=== PATIENT | female | born 1950 | race Caucasian/White ===

== ENCOUNTER 2017-09-07 15:41 | Emergency (ER) | payer BC ==
[2017-09-07 16:02] VITALS: BP 151/64
== END 2017-09-07 16:04 | disposition left against medical advice (07) ==
LOC: UCCORT 15:41
DX: M25.531 Pain in right wrist (principal); Z53.21 Procedure and treatment not carried out due to patient leaving prior to being seen by health care provider

== ENCOUNTER 2017-09-08 15:38 | Emergency (ER) | payer BC ==
[2017-09-08 17:58] VITALS: BP 151/54
--- NOTE | 2017-09-08 18:30 | RAD ---
INDICATION: Atraumatic right wrist pain COMPARISON: None. TECHNIQUE: 3 views right wrist. REPORT: The visualized bones are properly aligned and well corticated. Degenerative changes of the right wrist include sclerotic change of the right thumb metacarpal trapezium joint and sclerotic change of the distal radius.There is no fracture, dislocation or other focal osseous abnormality. IMPRESSION: Mild degenerative changes of the right wrist. If the patient's symptoms persist, follow-up imaging is recommended.
--- NOTE | 2017-09-08 18:33 | ED ---
Upper Extremity Pain - HPI Summary HPI Summary: 66 yr old female with the complaint of right wrist pain. Onset of pain was over the past week, without any specific history of trauma or injury. 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 Complains of pain, 5/10, localized mainly to the dorsum of the right wrist. Not associated with numbness or weakness. No redness, fever, chills, swelling. Moving the wrist in flexion makes the pain worse. - History of Current Complaint Chief Complaint: UCUpperExtremity Stated Complaint: RIGHT WRIST COMPLAINT Time Seen by Provider: 09/08/17 17:45 - Allergies/Home Medications Allergies/Adverse Reactions: Allergies Allergy/AdvReac Type Severity Reaction Status Date / Time No Known Allergies Allergy Verified 09/08/17 17:58 PMH/Surg Hx/FS Hx/Imm Hx Endocrine/Hematology History: Reports: Hx Thyroid Disease Cardiovascular History: Reports: Hx Hypertension - Surgical History Surgery Procedure, Year, and Place: RIGHT KNEE REPLACEMENT 04/2105. cardiac stents Infectious Disease History: No Infectious Disease History: Denies: Traveled Outside the [place] in Last 30 Days - Family History Known Family History: Positive: Unknown, Hypertension, Other - DJD - Social History Alcohol Use: None Substance Use Type: Reports: None Smoking Status (MU): Former Smoker Length of Time of Smoking/Using Tobacco: 1 PPD 37 Years Review of Systems Constitutional: Negative Positive: Other - wrist pain All Other Systems Reviewed And Are Negative: Yes Physical Exam Triage Information Reviewed: Yes Vital Signs On Initial Exam: Initial Vitals Temp Pulse Resp BP Pulse Ox 97.8 F 54 17 151/54 99 09/08/17 17:53 09/08/17 17:53 09/08/17 17:53 09/08/17 17:53 09/08/17 17:53 Vital Signs Reviewed: Yes Appearance: Positive: Well-Appearing, No Pain Distress Skin: Positive: Warm, Skin Color Reflects Adequate Perfusion Head/Face: Positive: Normal Head/Face Inspection Eyes: Positive: EOMI Respiratory/Lung Sounds: Positive: Other - normal effort Cardiovascular: Positive: Pulses are Symmetrical in both Upper and Lower Extremities Musculoskeletal: Positive: Strength/ROM Intact, Other - she has negative tinnel and phalen tests right wrist. No deformity of wrist, no swelling, no redness no increased warmth. She has good radial pulses, good capillary refill. Normal neuro vascular exam right hand. Neurological: Positive: Sensory/Motor Intact, Alert, Oriented to Person Place, Time, CN Intact II-III Psychiatric: Positive: Normal - [place] Coma Scale Best Eye Response: 4 - Spontaneous Best Motor Response: 6 - Obeys Commands Best Verbal Response: 5 - Oriented Diagnostics - Vital Signs Vital Signs Temp Pulse Resp BP Pulse Ox 09/08/17 17:53 97.8 F 54 17 151/54 99 - Laboratory Lab Statement: Any lab studies that have been ordered have been reviewed, and results considered in the medical decision making process. - Radiology wrist right Xray Interpretation: Positive (See Comments) Radiology Interpretation Completed By: Radiologist Course/Dx - Course Course Of Treatment: 66 yr old female with DJD wrist. Splint and motrin. 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
== END 2017-09-08 18:59 | disposition home or self-care (01) ==
LOC: UCCORT 15:38
DX: M19.031 Primary osteoarthritis, right wrist (principal); I10 Essential (primary) hypertension; E07.9 Disorder of thyroid, unspecified; Z96.651 Presence of right artificial knee joint; Z95.5 Presence of coronary angioplasty implant and graft; Z87.891 Personal history of nicotine dependence
CPT/HCPCS: 99212; G0463

== ENCOUNTER 2017-12-09 11:02 | Emergency (ER) | payer BC ==
--- OUTSIDE RECORDS SUMMARY | 2017-12-09 12:00 | XMS REPORT ---
:1950 External Reference #:[id number] Author Organization [facility] Address [address], [address] [place] [address] Phone [phone] Care Team Providers Name Role Phone Deb Marr NP Care Team Information Call Or Contact Centre Manager Unavailable Deb Marr NP Primary Care Physician Unavailable Payers Type Date Identification Numbers Payment Provider Subscriber Commercial Effective: Policy Number: Emily Sterling Owen 2013 [id number] Group Name: Emily Gregory [address] [address] PayID: [id number] [place] [address] Problems Date Description Provider Status Onset: 07/31/2011 Benign essential hypertension Karol Cordoba M.D. Active Onset: 07/31/2011 Hypothyroidism Karol Cordoba M.D. Active Onset: 07/31/2011 Hyperlipidemia Karol Cordoba M.D. Active Onset: 07/31/2011 Disorder of cardiovascular system Karol Cordoba M.D. Active Onset: 11/11/2015 Mixed hyperlipidemia Karol Cordoba M.D. 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 None Allergies, Adverse Reactions, Alerts Date Description Reaction Status Severity Comments 12/24/2014 NKDA active Medications Medication Date Status Form Strength Qnty SIG Indications Ordering Provider Hydrochlorothiaz 09/13 Active Tablets 25mg 30tab 1 by I10 Deb reggie s mouth ARTEM Marr every day in addition to metoprolo l Levothyroxine 09/13 Active Tablets 137mcg 30tab 1 by Jenmila s mouth ARTEM Marr every day *in place of 125 mcg* Crestor 08/10 Active Tablets 20mg 90tab Take One Magdaleneferleierika s Tablet By ARTEM Marr Mouth Every Day Metoprolol 07/07 Active Tablets 50mg 180ta Take One chandnibaljit Tartrate bs Tablet By ARTEM Marr Mouth Twice A Day Aspirin Active Tablets 325mg 1 PO qd Noemi MD Karol Nitrostat Active Tablets 0.4mg 10tab one Sub s sublingua ARTEM Marr l at onset of chest pain/ angina, may repeat in 5 minutes x 2, total of 3 tabs Metformin HCL 09/13 Hx Tablets 500mg 60tab take one chandnibaljit s tablet by ARTEM Marr - mouth 11/22 twice a day Levothyroxine 02/16 Hx Tablets 125mcg 90tab Take One baljit s Tablet By ARTEM Marr - Mouth 09/13 Lorazepam 11/29 Hx Tablets 0.5mg 2tabs 1 tab by Barbara mouth 1 MD Dayana - hour 11/10 prior to appointme nt . may repeat x1. Ref # [id number] Ondansetron HCL 08/14 Hx Tablets 4mg 10tab 1 tab Noemi, s every 6hr MD Karol - as needed 11/10 for nausea Famciclovir 07/11 Hx Tablets 500mg 3tabs take 3 Barbara tablets MD Dayana - po all at 02/11 Naproxen 12/14 Hx Tablets 375mg 60tab 1 by Rc Ponce s mouth - twice a 11/10 day after meals Levothyroxine 07/31 Hx Tablets 112mcg 90tab take one Magdalenefergeorgegh Sodium s tablet by ARTEM Marr - mouth 02/16 every Immunizations CPT Code Status Date Vaccine Lot # [id number] Given 06/12/2017 Zoster Vaccine Live Injection 60693 Given 06/12/2017 Influenza Virus Vaccine, Quadrivalent, Slit Virus, Im Use 82806 Given 02/11/2017 Pneumococcal Conjugate Vaccine 13 Valent For [id number] Intramuscular Use 18522 Given 06/07/2013 flu vaccination 78179 Given 05/11/2012 flu vaccination 73591 Given 07/31/2011 Pneumovax Injection 21882 Given 07/31/2011 flu vaccination Vital Signs Date Vital Result Comment 11/22/2017 BP Systolic Sitting Left Arm 128 mmHg BP Diastolic Sitting Left Arm 80 mmHg Heart Rate 78 /min Respiratory Rate 18 /min Height 66 inches 5'6" Weight 265.00 lb BMI (Body Mass Index) 42.8 kg/m2 BSA (Body Surface Area) 2.25 m2 [place] body weight in kilograms 59 09/13/2017 BP Systolic Sitting Left Arm 136 mmHg BP Diastolic Sitting Left Arm 84 mmHg Heart Rate 88 /min Respiratory Rate 18 /min Height 66 inches 5'6" Weight 263.50 lb BMI (Body Mass Index) 42.5 kg/m2 BSA (Body Surface Area) 2.25 m2 [place] body weight in kilograms 59 02/11/2017 BP Systolic Sitting Left Arm 134 mmHg BP Diastolic Sitting Left Arm 76 mmHg Heart Rate 78 /min Respiratory Rate 18 /min Height 66 inches 5'6" Weight 287.00 lb BMI (Body Mass Index) 46.3 kg/m2 BSA (Body Surface Area) 2.33 m2 [place] body weight in kilograms 59 11/11/2015 BP Systolic Sitting Right Arm 130 mmHg BP Diastolic Sitting Right Arm 60 mmHg Heart Rate 74 /min Respiratory Rate 19 /min Weight 268.00 lb 08/14/2014 BP Systolic 118 mmHg BP Diastolic 66 mmHg Body Temperature 98.4 F Height 66 inches 5'6" Weight 253.00 lb 12/14/2013 BP Systolic 124 mmHg LG Cuff BP Diastolic 68 mmHg LG Cuff Body Temperature 98.8 F Height 66 inches 5'6" Weight 273.00 lb 06/07/2013 BP Systolic 126 mmHg BP Diastolic 78 mmHg Body Temperature 98.2 F Height 66 inches 5'6" Weight 280.00 lb 01/11/2013 BP Systolic 114 mmHg BP Diastolic 76 mmHg Heart Rate 72 /min Height 65 inches 5'5" Weight 278.00 lb 12/15/2011 Height 63.5 inches 5'3.50" Weight 265.00 lb Results Test Date Test Result H/L Range Note Laboratory test 11/18/2017 Thyroid Stim Hormone 1.21 uIU/mL 0.30-4.20 1 finding Laboratory test 09/13/2017 Thyroid Stim Hormone 7.99 uIU/mL High 0.30- 4.20 2 finding Thyroid Antibodies 02/11/2017 Thyroglobulin Antibody 2.4 IU/mL High 0.0- 0.9 3, 4 Thyroid Peroxidase Antibodies 440 IU/mL High 0-34 3, 5 CBS W/Automated Diff 02/11/2017 White Blood Count 6.6 K/uL 3.1-10.7 3 Red Blood Count 4.26 M/uL 3.90-5.40 3 Hemoglobin 13.5 gm/dL 11.6-15.8 3 Hematocrit 41.6 % 36.0-46.1 3 Mean Cell Volume 97.7 fl 80.9-99.0 3 Mean Corpuscular HGB 31.7 pg 25.9-32.7 3 Mean Corpuscular HGB Conc 32.5 g/dL 30.8-34.3 3 Platelet Count 242 K/uL 150-400 3 Red Cell Distri Width SD 47.5 fl High 3-47 3 Red Cell Distri Width %CV 13.5 % 11.7-14.4 3 Mean Platelet Volume 11.2 fL 8.9-12.4 3 Neut% 50.5 % 40.4-72.8 3 Lymph % 32.6 % 20.0-42.0 3 [place] % 13.1 % 4.3-13.2 3 Eo% 3.3 % 0.0-6.6 3 Bas% 0.5 % 0.0-1.1 3 Neut# 3.32 K/uL 1.8-7.0 3 Lymph # 2.14 K/uL 1.0-4.0 3 [place] # 0.86 K/uL 0.3-0.9 3 Eos # 0.22 K/uL 0.0-0.5 3 Baso # 0.03 K/uL 0.0-0.1 3 Comprehensive Metabolic Panel 02/11/2017 Glucose 76 mg/dL 74-106 3 BUN 11 mg/dL 7-18 3 Creatinine 0.8 mg/dL 0.6-1.3 3 Glom Filtration Rate, Estimate >60 mL/min >60 3 If >60 mL/min >60 3, 6 BUN/Creat 13.7 ratio 3 Sodium 141 mmol/L 136-145 3 Potassium 4.1 mmol/L 3.5-5.1 3 Chloride 106 mmol/L 98-107 3 Carbon Dioxide 28 mmol/L 21-32 3 Anion Gap 7 mEq/L Low 8-16 3 Calcium 9.4 mg/dL 8.5-10.1 3 Total Protein 7.6 g/dL 6.4-8.2 3 Albumin 3.8 g/dL 3.4-5.0 3 Globulin 3.8 g/dL 1.9-4.3 3 Alb/Glob 1.0 ratio 3 Bilirubin,Total 0.3 mg/dL 0.2-1.0 3 Sgot/Ast 22 U/L 15-37 3 SGPT/Alt 38 U/L 12-78 3 Alkaline Phosphatase 68 U/L 45-117 3 Laboratory test 02/11/2017 Thyroid Stim Hormone 11.80 uIU/mL High 0.30- 4.20 3 finding LDL Cholesterol 02/11/2017 Cholesterol 163 mg/dL <200 3, 7 Profile Triglycerides 242 mg/dL High <150 3, 8 HDL Cholesterol 41 mg/dL >40 3, 9 LDL-Cholesterol 74 mg/dL < 100 3, 10 Basic Metabolic Panel 11/11/2015 Glucose 76 mg/dL 74-106 BUN 16 mg/dL 7-18 Creatinine 0.8 mg/dL 0.6-1.3 Glom Filtration Rate, Estimate >60 mL/min >60 If >60 mL/min >60 11 BUN/Creat 20.0 ratio Sodium 141 mmol/L 136-145 Potassium 3.8 mmol/L 3.5-5.1 Chloride 106 mmol/L 98-107 Carbon Dioxide 30 mmol/L 21-32 Anion Gap 5 mEq/L Low 8-16 Calcium 8.6 mg/dL 8.5-10.1 LDL Cholesterol Profile 11/11/2015 Cholesterol 155 mg/dL 150-200 12 Triglycerides 246 mg/dL High 50-150 13 HDL Cholesterol 43 mg/dL Low 60-150 14 LDL-Cholesterol 63 mg/dL Low 75-100 15 Liver Function Tests 11/11/2015 Total Protein 7.7 g/dL 6.4-8.2 Albumin 3.8 g/dL 3.4-5.0 Globulin 3.9 g/dL 1.9-4.3 Alb/Glob 1.0 ratio Bilirubin,Total 0.3 mg/dL 0.2-1.0 Bilirubin,Direct < 0.1 mg/dL 0.0-0.2 Bilirubin,Indirect 0.2 mg/dL 0.0-0.9 Sgot/Ast 15 U/L 15-37 SGPT/Alt 28 U/L 12-78 Alkaline Phosphatase 69 U/L 45-117 Laboratory test finding 11/11/2015 Thyroid Stim Hormone 2.12 uIU/mL 0.36- 3.74 Liver Function Panel 06/07/2013 Albumin 4.1 g/dL 3.2-5.2 Albumin/Globulin Ratio 1.5 1-3 Alkaline Phosphatase 64 U/L 30-110 Alt 24 U/L 14-54 Ast 22 U/L 12-42 Direct Bilirubin 0.1 mg/dL 0.1-0.5 Globulin 2.8 g/dL 2-4 Indirect Bilirubin 0.5 mg/dL 0.3-1.0 Total Bilirubin 0.6 mg/dL 0.4-1.5 Total Protein 6.9 g/dL 6.2-8.1 Laboratory test 06/07/2013 TSH (Thyroid 3.76 miu/mL 0.34-5.60 finding Stimulating Horm) Lipid Profile 06/07/2013 Cholesterol 161 mg/dL Less than 200 (Trig/Chol/HDL) Cholesterol/HDL Ratio 4.1 Average 1-4.44 HDL Cholesterol 39 mg/dL Low 40-60 16 LDL Cholesterol 72.6 Less Than 100 17 Triglycerides 247 mg/dL High 40-200 Lipid Profile (Trig/Chol/HDL) 01/11/2013 Cholesterol 169 mg/dL Less than 200 Cholesterol/HDL Ratio 4.0 Average 1-4.44 HDL Cholesterol 42 mg/dL 40-60 18 LDL Cholesterol 82.6 mg/dL Less Than 100 19 Triglycerides 222 mg/dL High 40-200 Liver Function Panel 01/11/2013 Albumin 4.3 g/dL 3.2-5.2 Albumin/Globulin Ratio 2.0 1-3 Alkaline Phosphatase 60 U/L 30-110 Alt 26 U/L 14-54 Ast 22 U/L 12-42 Direct Bilirubin 0.1 mg/dL 0.1-0.5 Globulin 2.1 g/dL 2-4 Indirect Bilirubin 0.6 mg/dL 0.3-1.0 Total Bilirubin 0.7 mg/dL 0.4-1.5 Total Protein 6.4 g/dL 6.2-8.1 Urine Culture And 01/11/2013 Urine Culture (See Note) 20 Sensitivities Laboratory test finding 08/05/2012 Throat Beta Strep (See Note) 21 Culture Liver Function Panel 05/11/2012 Albumin 4.3 GM/DL 3.2-5.2 Albumin/Globulin Ratio 1.5 1-3 Alkaline Phosphatase 68 U/L 30-110 Alt (SGPT) 31 U/L 14-54 Ast (Sgot) 25 U/L 12-42 Bilirubin Direct 0.1 mg/dL 0.1-0.5 Bilirubin Total 0.7 mg/dL 0.4-1.5 22 Globulin 2.9 GM/DL 2-4 Indirect Bilirubin 0.6 mg/dL 0.3-1.0 23 Total Protein 7.2 GM/DL 6.2-8.1 Lipid Profile (Trig/Chol/HDL) 05/11/2012 Cholesterol 274 mg/dL High Less Than 200 24 Cholesterol/HDL Ratio 7.41 AVERAGE High 1-4.44 High Density Lipoprotein 37 mg/dL Low 40-60 25 Low Density Lipoprotein (See Note) mg/dL Less Than 100 26 Triglyceride 459 mg/dL High 40-200 Basic Metabolic Panel 05/11/2012 Anion Gap 7.0 mmol/L 2-11 27 BUN 10 mg/dL 6-24 BUN/Creatinine Ratio 12.5 8-20 Calcium 9.6 mg/dL 8.1-9.9 Chloride 100 mmol/L Low 101-111 Co2 (Carbon Dioxide) 28.0 mmol/L 22-32 Creatinine 0.8 mg/dL 0.50-1.40 Glucose 85 mg/dL 70-100 One Over Creatinine 1.25 Potassium 4.0 mmol/L 3.5-5.0 Sodium 135 mmol/L 135-145 eGFR 94.1 > 60 28 eGFR Non- 73.2 > 60 Laboratory test finding 05/11/2012 Thyroxine Free 0.66 ng/dL 0.61-1.24 TSH 3.12 MIU/ML 0.34-5.60 Laboratory test finding 05/11/2012 Cytology Pap See Note 29 Affirm 05/11/2012 Rosalia Negative 30 Gardnerella Negative Trichomonas Negative 1 I10 E03.9 has appt 11/22 to discuss results. 2 E03.9 3 I10 E03.9 4 Thyroglobulin Antibody measured by [facility] [place] [facility] 5 Performed at: - [facility] [id number] Assistant Scientist: Mary Jimenez MD, Phone: [phone] Note: Persistent reduction for 3 months or more in an eGFR <60 mL/min/1.73 m2 defines CKD. Patients with eGFR values >/=60 mL/min/1.73 m2 may also have CKD if evidence of persistent proteinuria is present. The original MDRD equation for estimated GFR is not valid for patients less than 18 years of age. Additional information may be found at www.kdoqi.org. 7 Reference Guidelines*: Desirable: ........... < 200 mg/dL Borderline High: ..... 200-239 mg/dL High: ................ >=240 mg/dL * The National Cholesterol Education Program (NCEP) 8 Reference Guidelines*: Normal: ............. < 150 mg/dL Borderline High: .... 150-199 mg/dL High: ............... 200-499 mg/dL Very High: .......... > 500 mg/dL * Source: National Cholesterol Education Program (NCEP) 9 Reference Guidelines*: Low HDL: ..... < 40 mg/dL Normal: ..... 40-60 mg/dL Desirable: ... > 60 mg/dL *The National Cholesterol Education Program(NCEP) 10 Reference Guidelines*: Optimal:........... <100 mg/dL Near Optimal....... 100-129 mg/dL Borderline High.... 130-159 mg/dL High............... 160-189 mg/dL Very High.......... >=190 mg/dL * Source: National Cholesterol Education Program (NCEP) 11 Note: Persistent reduction for 3 months or more in an eGFR <60 mL/min/1.73 m2 defines CKD. Patients with eGFR values >/=60 mL/min/1.73 m2 may also have CKD if evidence of persistent proteinuria is present. The original MDRD equation for estimated GFR is not valid for patients less than 18 years of age. Additional information may be found at www.kdoqi.org. 12 Reference Guidelines*: Desirable: ........... < 200 mg/dL Borderline High: ..... 200-239 mg/dL High: ................ >=240 mg/dL * The National Cholesterol Education Program (NCEP) 13 Reference Guidelines*: Normal: ............. < 150 mg/dL Borderline High: .... 150-199 mg/dL High: ............... 200-499 mg/dL Very High: .......... > 500 mg/dL * Source: National Cholesterol Education Program (NCEP) 14 Reference Guidelines*: Low HDL: ..... < 40 mg/dL Normal: ..... 40-60 mg/dL Desirable: ... > 60 mg/dL *The National Cholesterol Education Program(NCEP) 15 Reference Guidelines*: Optimal:........... <100 mg/dL Near Optimal....... 100-129 mg/dL Borderline High.... 130-159 mg/dL High............... 160-189 mg/dL Very High.......... >=190 mg/dL * Source: National Cholesterol Education Program (NCEP) 16 HDL Interpretation: Undesirable: High Risk: Less than 40 mg/dL Desirable: Low Risk: Greater than 60 mg/dL 17 LDL Interpretation: Low Risk Optimal Level: LDL Less than 100 mg/dL Near or Above Optimal: LDL 100-129 mg/dL Borderline High Risk: LDL 130-159 mg/dL High Risk : LDL 160-189 mg/dL Very High Risk: LDL Greater than 189 mg/dL 18 HDL Interpretation: Undesirable: High Risk: Less than 40 mg/dL Desirable: Low Risk: Greater than 60 mg/dL 19 LDL Interpretation: Low Risk Optimal Level: LDL Less than 100 mg/dL Near or Above Optimal: LDL 100-129 mg/dL Borderline High Risk: LDL 130-159 mg/dL High Risk : LDL 160-189 mg/dL Very High Risk: LDL Greater than 189 mg/dL 20 RUN DATE: 01/14/13 [facility] LAB LIVE PAGE 1 RUN TIME: [address] [place] [id number] Specimen Inquiry ----- Name: RENATE CONCEPCION : [address]: Karol Cordoba MD Acct: [id number] Unit: [id number] AGE: 62 Location: [facility] Re01/11/13 SEX: F Status: REG REF ----- SPEC: [id number] NIKI: 01/11/[address]: Karol Cordoba MD REQ: [id number] RECD: 01/11/13 STATUS: COMP _ SOURCE: URINE SPDESC: ORDERED: Urine Culture QUERIES: Medent Number [id number] Urine Source: Random ----- Procedure Result Verified Site ----- Urine Culture Final 01/14/13-927 ML Organism 1 STREP GROUP B [place] Count 10-25,000 (Moderate) CFU/ML Organism 2 NORMAL JAYLA [place] Count 1-10, 000 (Few) CFU/ML Susceptibility testing of penicillins and other B-lactams approved by FDA for treatment of Streptococcus pyogenes (Group A Strep) and Streptococcus agalactiae (Group B Strep) is not necessary for clinical purposes and need not be done routinely, since as with vancomycin, resistant strains have not been recognized. (CLSI Y560-N29;p.66) Positive isolates will be saved for one week. Please call the Microbiology Laboratory if further susceptibility testing is needed. ----- END OF REPORT * ML=Testing performed at Main Lab DEPARTMENT OF PATHOLOGY, [address] [place] [address] [place] June M.D. Director [facility] Permit # [id number] RUN DATE: 08/07/12 [facility] LAB LIVE PAGE 1 RUN TIME: [address] [place] [address] Specimen Inquiry ----- Name: RENATE CONCEPCION : [address]: Karol Cordoba MD Acct: [id number] Unit: [id number] AGE: 61 Location: [facility] Re08/05/12 SEX: F Status: REG REF ----- SPEC: [id number] NIKI: 08/05/[address]: Karol Cordoba MD REQ: [id number] RECD: 08/05/12 STATUS: COMP _ SOURCE: THROAT SPDESC: ORDERED: Throat Beta Str QUERIES: Medent Number [id number] ----- Procedure Result Verified Site ----- Throat Beta Strep Culture Final 08/07/12-0811 ML Negative For Group A Beta Streptococcus ----- END OF REPORT * ML=Testing performed at Main Lab DEPARTMENT OF PATHOLOGY, [address] [place] [address] Raleigh June M.D. Director [facility] Permit # [id number] 22 A metabolite of Naproxen, O-desmethylnaproxen, has been shown to interfere with the [place] method for measuring total bilirubin. Samples from patients who have taken Naproxen have shown spurious elevation in total bilirubin levels. 23 Please note updated reference range, effective 03/13/10 24 CHOLESTEROL INTERPRETATION: Desirable: Less than 200 MG/DL Borderline-High Risk: 200-239 MG/DL High-Risk: 240 MG/DL and over 25 HDL INTERPRETATION: Undesirable: High Risk: Less than 40 MG/DL Desirable: Low Risk: Greater than 60 MG/DL 26 UNABLE TO CALCULATE LDL TRIGLYCERIDE IS > 400 27 Anion gap measurement may be of limited value in the presence of any alkalosis, especially in a combined acid base disorder. . 28 Because ethnic data is not always readily available, this report includes an eGFR for both -Americans and non- Americans. The National Kidney Disease Education Program (NKDEP) does not endorse the use of the MDRD equation for patients that are not between the ages of 18 and 70, are , have extremes of body size, muscle mass, or nutritional status, or are non- or non-. According to the National Kidney Foundation, irrespective of diagnosis, the stage of the disease is based on the level of kidney function: Stage Description GFR(mL/min/1.73 m(2)) 1 Kidney damage with normal or decreased GFR 90 2 Kidney damage with mild decrease in GFR 60- 89 3 Moderate decrease in GFR 30-59 4 Severe decrease in GFR 15-29 5 Kidney failure <15 (or dialysis) 29 Cytology Laboratory [address], [address] [place] [address] CYTOLOGY REPORT Name: Renate Concepcion : 1950 (Age: 61) Sex: F Location: [facility] Med. Rec. # Date Collected: 05/11/2012 Billing #: [id number] Date Received: 2011 Physician(s): KAROL CORDOBA MD Source of Specimen: A: ENDOCERVICAL/ECTOCERVICAL THIN PREP MASS/POLYP B: ENDOCERVICAL/ECTOCERVICAL THIN PREP OS Clinical Information: Date of Last Menstrual Period: None Provided Menstrual History: Post menopausal: Unknown 1. ENDOCERVICAL/ECTOCERVICAL THIN PREP MASS/POLYP: Specimen Adequacy: SATISFACTORY FOR EVALUATION. ADEQUATE ENDOCERVICAL/TRANSFORMATION ZONE. General Categorization: NEGATIVE FOR INTRAEPITHELIAL LESION OR MALIGNANCY. 2. ENDOCERVICAL/ECTOCERVICAL THIN PREP OS: Specimen Adequacy: SATISFACTORY FOR EVALUATION. ADEQUATE ENDOCERVICAL/TRANSFORMATION ZONE. General Categorization: NEGATIVE FOR INTRAEPITHELIAL LESION OR MALIGNANCY. jib Electronic Signature Juancho Kyle MD Reported: 05/13/2012 Also seen by: ZOË Saldaña (ASCP) Cytology Outreach [facility] ICD-9 Code(s) V72.31 30 Special Testing Laboratory [address], [address] [place] [address] AFFIRM VAGINOSIS / VAGINITIS REPORT Name: Renate Concepcion : 1950 (Age: 61) Sex: F Location: [facility] Med. Rec. # Date Collected: 05/11/2012 Billing #: [id number] Date Received: 05/12/2012 Physician(s): KAROL CORDOBA MD Source of Specimen: Vaginal Results: Rosalia species DNA Probe NEGATIVE Gardnerella vaginalis DNA Probe NEGATIVE Trichomonas vaginalis DNA Probe NEGATIVE Reported: 05/13/2012 Electronic Signature rachel OLIVEIRA ([facility]) [facility] Technical Laboratory [facility] ICD-9 Codes: A: 616.10 Procedures Date CPT Code Description Status Comment 02/25/2017 46126 Removal Skin Tags/Multi To Completed 15 12/01/2016 Mammogram Completed Document: 11/23/15 - Digital Mammo Screen Bilat Document: 12/01/16 - Screening Mammogram Bilateral 12/15/2011 23229 Asp./Injection major joint Completed 06/24/[address] Knight - 5 years - was scheduled but cancelled appt Triage: 12/22/16 - colonoscopy Encounters Type Date Location Provider CPT E/M Dx Office Visit 11/22/2017 11:45a [facility] ARTEM Jacques 26794 I10 E03.9 Z12.31 Office Visit 09/13/2017 11:15a [facility] ARTEM Jacques 04011 I10 E03.9 E66.01 Office Visit 02/11/2017 1:30p [facility] ARTEM Jacques 75579 J02.9 J30.9 F43.21 E66.01 I10 E03.9 Z23 Office Visit 11/11/2015 4:30p [facility] Karol Cordoba M.D. 87037 I10 I10 E78.2 E78.2 E03.9 E03.9 Plan of Care Future Appointment(s):05/24/2018 3:00 pm - ARTEM Jacques at [facility]11/22/2017 - YUNG Jacques10 Essential (primary) hypertensionComments:Nicely improved on HCTZ - continue, meds refilled. Discussed getting back to walking most days of the week for your heart healthFollow up:6 month f/u htn, etcE03.9 Hypothyroidism, unspecifiedComments: Discussed labs above. No changes needed. Continue on TlzqvgguruijfT63.31 Encntr screen mammogram for malignant neoplasm of breastNew Xrays:Mammography, Screening Bilateral Mammogram
[2017-12-09 12:11] VITALS: BP 138/76
--- NOTE | 2017-12-09 12:54 | UC ---
Throat Pain/Nasal [place] HPI - HPI Summary HPI Summary: nasal congestion / cough x 2 days sinus pressure, pnd, no fever, + chills - History of Current Complaint Chief Complaint: UCRespiratory Stated Complaint: Sinuses Time Seen by Provider: 12/09/17 12:37 Hx Obtained From: Patient Onset/Duration: Gradual Onset, Lasting Days - 2, Still Present Severity: Moderate Pain Intensity: 8 Cough: Nonproductive Associated Signs & Symptoms: Positive: Sinus Discomfort, Nasal Discharge. Negative: Wheezing, Hoarseness, Fever, Vomiting, Rash - Allergies/Home Medications Allergies/Adverse Reactions: Allergies Allergy/AdvReac Type Severity Reaction Status Date / Time No Known Allergies Allergy Verified 12/09/17 12:12 Home Medications: Home Medications Aspirin TAB* [Aspirin 325 MG TAB*] 325 mg PO DAILY 12/09/17 [History Confirmed 12/09/17] Chlorphenir/Phenyleph/Aspirin [[place] Plus Cold 2-7.8-325 mg] 2 tab PO Q4HR PRN 12/09/17 [History Confirmed 12/09/17] Metoprolol Tartrate TAB* [Lopressor TAB*] 50 mg PO BID 12/09/17 [History Confirmed 12/09/17] Nitroglycerin [Nitrostat] 0.3 mg SL SEE INSTRUCTIONS 12/09/17 [History Confirmed 12/09/17] Rosuvastatin Calcium [Crestor] 20 mg PO DAILY 12/09/17 [History Confirmed ] PMH/Surg Hx/FS Hx/Imm Hx Cardiovascular History: Cardiac Disease, Hypertension - Surgical History Surgical History: Yes Surgery Procedure, Year, and Place: RIGHT KNEE REPLACEMENT 04/2105. cardiac stent - Family History Known Family History: Positive: Unknown, Hypertension, Other - DJD - Social History Alcohol Use: None Substance Use Type: None Smoking Status (MU): Former Smoker Length of Time of Smoking/Using Tobacco: 1 PPD 37 Years When Did the Patient Quit Smoking/Using Tobacco: 2005 - Immunization History Most Recent Influenza Vaccination: 9313-0176 Review of Systems Constitutional: Chills, Fatigue Skin: Negative Eyes: Negative ENT: Sore Throat, Nasal Discharge, Sinus Congestion, Sinus Pain/Tenderness Respiratory: Cough Cardiovascular: Negative Is Patient Immunocompromised?: No All Other Systems Reviewed And Are Negative: Yes Physical Exam Triage Information Reviewed: Yes Appearance: Well-Appearing, No Pain Distress, Well-Nourished Vital Signs: Initial Vital Signs Temp 98.9 F 12/09/17 12:03 Pulse 72 12/09/17 12:03 Resp 18 12/09/17 12:03 BP 138/76 12/09/17 12:03 Pulse Ox 97 12/09/17 12:03 Vital Signs Reviewed: Yes Eyes: Positive: Conjunctiva Clear ENT: Positive: Normal ENT inspection, Hearing grossly normal, Pharynx normal, Nasal congestion, TMs normal Neck: Positive: Supple, Nontender, No Lymphadenopathy Respiratory: Positive: Chest non-tender, Lungs clear, Normal breath sounds, No respiratory distress Cardiovascular: Positive: RRR, No Murmur, Pulses Normal Skin Exam: Normal Throat Pain/Nasal Course/Dx - Differential Dx/Diagnosis Provider Diagnoses: uri Discharge - Sign-Out/Discharge Documenting (check all that apply): Discharge - Discharge Plan Condition: Stable Disposition: HOME Patient Education Materials: Upper Respiratory Infection (ED) Forms: *Work Release Referrals: Marissa Marr NP [Primary Care Provider] - If Needed - Billing Disposition and Condition Condition: STABLE Disposition: HOME
== END 2017-12-09 13:01 | disposition home or self-care (01) ==
LOC: UCCORT 11:02
DX: J06.9 Acute upper respiratory infection, unspecified (principal); I51.9 Heart disease, unspecified; I10 Essential (primary) hypertension; Z87.891 Personal history of nicotine dependence
CPT/HCPCS: 99211; G0463

== ENCOUNTER 2019-07-10 07:46 | Emergency (ER) | payer BC ==
--- OUTSIDE RECORDS SUMMARY | 2019-07-10 07:51 | XMS REPORT | Continuity of Care Document ---
:1950 External Reference #:[id number] Author Name Deb Marr DOCTOR OF OSTEOPATHY Address [address] [place] [address] Care Team Providers Name Role Phone Deb Marr, [employer]ILDING [employer] - Nurse Care Team Information Superintendent [employer] [phone] Practitioner Lele Radford MD - Obstetrics & Care Team Information Superintendent [employer] Gynecology Problems Active Problems Provider Date Benign essential hypertension Karol Franklin M.D. Onset: 07/31/2011 Hypothyroidism Karol Franklin M.D. Onset: 07/31/2011 Hyperlipidemia Karol Franklin M.D. Onset: 07/31/2011 Disorder of cardiovascular system Karol Franklin M.D. Onset: 07/31/2011 Mixed hyperlipidemia Karol Franklin M.D. Onset: 11/11/2015 Social History Type Date Description Comments Sex Unknown ETOH Use Denies alcohol use Tobacco Use Start: Unknown End: Unknown Patient is a former smoker Smoking Status Reviewed: 04/26/19 Patient is a former smoker Allergies, Adverse Reactions, Alerts Description No Known Drug Allergies Medications Active Medications SIG Qnty Indications Ordering Date Provider Rosuvastatin Calcium Take One Tablet 90tabs Clune, 08/17/2018 20mg By Mouth Every Jenniferleigh, Tablets Day DOCTOR OF OSTEOPATHY Hydrochlorothiazide Take One Tablet 30tabs I10 Clune, 09/13/2017 25mg By Mouth Every Jenniferleigh, Tablets Day In Addition DOCTOR OF OSTEOPATHY To Metoprolol Levothyroxine Sodium Take One Tablet 30tabs Clune, 09/13/2017 137mcg By Mouth Every Jenniferleigh, Tablets Day DOCTOR OF OSTEOPATHY Metoprolol Tartrate Take One Tablet 180tabs Clune, 07/07/2011 50mg By Mouth Twice A Jenniferleigh, Tablets Day DOCTOR OF OSTEOPATHY Aspirin 1 PO qd Franklin, 325mg Tablets MD Karol Nitrostat one sublingual 10tabs Clune, 0.4mg Tablets Sub at onset of Jenniferleigh, chest pain/ DOCTOR OF OSTEOPATHY angina, may repeat in 5 minutes x 2, total of 3 tabs Immunizations CPT Code Status Date Vaccine Lot # [id number] Given 06/07/2018 Pneumovax Injection [id number] Given 06/07/2018 Influenza High Dose [id number] 30693 Given 06/12/2017 Zoster Vaccine Live Injection 78948 Given 06/12/2017 Influenza Virus Vaccine, Quadrivalent, Slit Virus, Im Use 06283 Given 02/11/2017 Pneumococcal Conjugate Vaccine 13 Valent For [id number] Intramuscular Use 97828 Given 06/07/2013 flu vaccination 31821 Given 05/11/2012 flu vaccination 28722 Given 07/31/2011 Pneumovax Injection 93967 Given 07/31/2011 flu vaccination Vital Signs Date Vital Result Comment 04/26/2019 1:34pm BP Systolic 137 mmHg BP Diastolic 73 mmHg Body Temperature 97.8 F Heart Rate 67 /min Respiratory Rate 16 /min Height 64 inches 5'4" Weight 278.00 lb BMI (Body Mass Index) 47.7 kg/m2 BSA (Body Surface Area) 2.25 m2 Peel body weight in kilograms 54 kg O2 % BldC Oximetry 91 % 04/13/2019 1:18pm BP Systolic Sitting Resting Right Arm 153 mmHg BP Diastolic Sitting Resting Right Arm 67 mmHg Heart Rate 69 /min Respiratory Rate 16 /min Height 64 inches 5'4" Weight 278.00 lb BMI (Body Mass Index) 47.7 kg/m2 BSA (Body Surface Area) 2.25 m2 Peel body weight in kilograms 54 kg Results Description No Information Available Procedures Date Code Description Status 04/13/2019 33434 Incision & Removal Foreign Body, Subcutaneous Tissues; Completed Simple 06/27/2018 58343782 Mammogram Completed 06/24/2006 20339850 Colonoscopy Completed Medical Devices Description No Information Available Encounters Type Date Location Provider Dx Diagnosis Office Visit 04/13/2019 [facility] Tejinder, R22.32 Localized swelling, 1:30p [address] Deb, mass and lump, left DOCTOR OF OSTEOPATHY upper limb Office Visit 03/15/2019 [facility] Tejinder, I10 Essential (primary) 1:15p [address] Marissabaljit, hypertension DOCTOR OF OSTEOPATHY E03.9 Hypothyroidism, unspecified R22.32 Localized swelling, mass and lump, left upper limb Assessments Date Code Description Provider 04/26/2019 Z48.02 Encounter for removal of sutures Deb Marr FNP 04/13/2019 R22.32 Localized swelling, mass and lump, left ClDeb guerrero FNP upper limb 03/15/2019 I10 Essential (primary) hypertension Deb Marr FNP 03/15/2019 E03.9 Hypothyroidism, unspecified Deb Marr, DOCTOR OF OSTEOPATHY 03/15/2019 R22.32 Localized swelling, mass and lump, left Deb Marr, DOCTOR OF OSTEOPATHY upper limb Plan of Treatment Future Appointment(s):10/10/2019 3:00 pm - Deb Marr FNP at [facility]04/26/2019 - Dbe Marr FNPZ48.02 Encounter for removal of suturesComments:reviewed benign pathology results. Keep steri strips on until they fall off naturally - OK to get wet.Follow up:09/2019 for CPE and HTN/hypothyroidism f/u Functional Status Description No Information Available Mental Status Description No Information Available Referrals Description No Information Available
[2019-07-10 08:04] VITALS: BP 144/82
--- NOTE | 2019-07-10 08:14 | UC ---
FLU HPI - HPI Summary HPI Summary: 68-year-old female who has had cold symptoms, head congestion productive cough and postnasal drainage over the past week. The nonsmoker and has not had her flu shot yet. - History of Current Complaint Chief Complaint: UCRespiratory Stated Complaint: FLU LIKE SYMP Time Seen by Provider: 07/10/19 07:58 Hx Obtained From: Patient ?: No Onset/Duration: Gradual Onset Severity Currently: Moderate Severity Initially: Mild Pain Intensity: 0 Associated Signs & Symptoms: Positive: Fever, Cough, Nasal Congestion - Allergy/Home Medications Allergies/Adverse Reactions: Allergies Allergy/AdvReac Type Severity Reaction Status Date / Time No Known Allergies Allergy Verified 07/10/19 07:54 Home Medications: Home Medications Aspirin EC TAB* [Ecotrin EC TAB*] 325 mg PO DAILY 07/10/19 [History Confirmed ] Hydrochlorothiazide TAB* [Hydrodiuril TAB*] 25 mg PO DAILY 07/10/19 [History Confirmed 07/10/19] Levothyroxine TAB* [Synthroid TAB*] 137 mcg PO DAILY 07/10/19 [History Confirmed 07/10/19] Metoprolol Tartrate TAB* [Lopressor TAB*] 50 mg PO BID 07/10/19 [History Confirmed 07/10/19] Nitroglycerin TAB 0.4 MG* 0.4 mg SL Q5M PRN 07/10/19 [History Confirmed 07/10/19 ] Rosuvastatin (NF) [Crestor] 20 mg PO DAILY 07/10/19 [History Confirmed 07/10/19] PMH/Surg Hx/FS Hx/Imm Hx Previously Healthy: Yes - Surgical History Surgical History: Yes Surgery Procedure, Year, and Place: Cardiac Stent, 2004, [facility]; Right TKA , 2014, [facility] - Family History Known Family History: Positive: Unknown, Hypertension, Other - DJD - Social History Alcohol Use: None Substance Use Type: None Smoking Status (MU): Former Smoker Type: Cigarettes Length of Time of Smoking/Using Tobacco: 1 PPD x 37 Years When Did the Patient Quit Smoking/Using Tobacco: 2004 - Immunization History Most Recent Influenza Vaccination: 8677-3281 Most Recent Tetanus Shot: 11/01/15 Review of Systems All Other Systems Reviewed And Are Negative: Yes Constitutional: Positive: Fever, Chills - Patient had fever and chills in the beginning of the illness but no longer. ENT: Positive: Nasal Discharge - Yellow nasal coryza., Sinus Congestion, Sinus Pain/Tenderness Respiratory: Positive: Cough - Occasional productive cough with greenish sputum. She thinks this is more postnasal drainage. Is Patient Immunocompromised?: No Physical Exam Triage Information Reviewed: Yes Appearance: Well-Appearing, No Pain Distress, Well-Nourished Vital Signs: Initial Vital Signs Temp 98.2 F 07/10/19 07:53 Pulse 88 07/10/19 07:53 Resp 18 07/10/19 07:53 BP 144/82 07/10/19 07:53 Pulse Ox 97 07/10/19 07:53 Vital Signs Reviewed: Yes Eyes: Positive: Conjunctiva Clear ENT: Positive: Pharynx normal - Yellow purulent postnasal drainage., Nasal congestion, Nasal drainage - Yellow purulent nasal coryza., TMs normal, Sinus tenderness - Tender over the maxillary sinuses bilaterally., Uvula midline Neck: Positive: Supple, Nontender, No Lymphadenopathy Respiratory: Positive: Lungs clear, Normal breath sounds, No respiratory distress, No accessory muscle use Cardiovascular: Positive: RRR, No Murmur, Pulses Normal, Brisk Capillary Refill Musculoskeletal Exam: Normal Neurological Exam: Normal Psychological Exam: Normal Skin Exam: Normal Flu Course/Dx - Course Course Of Treatment: Patient is comfortable here. I'm going to treat her for sinus infection with doxycycline. She is to follow-up with her primary care provider in 4 or 5 days if no improvement. No work until Wednesday. - Differential Dx/Diagnosis Provider Diagnosis: Sinusitis Discharge ED - Sign-Out/Discharge Documenting (check all that apply): Patient Departure All imaging exams completed and their final reports reviewed: No Studies - Discharge Plan Condition: Good Disposition: HOME Prescriptions: Acyclovir [Acyclovir 5% TOPICAL] 5 % TOPICAL QID PRN #1 tube PRN Reason: cold sore DOXYcycline CAP(*) [DOXYcycline 100MG CAP(*)] 100 mg PO BID 10 Days #20 cap Patient Education Materials: Sinusitis (ED) Forms: *Work Release Referrals: Marissa Marr NP [Primary Care Provider] - Additional Instructions: Increase fluids, rest, no antacids, multivitamins, supplements or dairy products 2 hours before you take the doxycycline and 2 hours after you take the doxycycline however take it with food see don't get an upset stomach. Definite follow-up with your primary care provider in 4 or 5 days if no improvement. - Billing Disposition and Condition Condition: GOOD Disposition: Home - Attestation Statements Provider Attestation: I was available for consult. This patient was seen by the [facility]. The patient was not presented to, seen by, or examined by me. -Jono
== END 2019-07-10 08:29 | disposition home or self-care (01) ==
LOC: UCCORT 07:46
DX: J32.9 Chronic sinusitis, unspecified (principal); Z95.5 Presence of coronary angioplasty implant and graft; Z87.891 Personal history of nicotine dependence
CPT/HCPCS: 99212; G0463